=== PATIENT | female | born 1945 | race Caucasian/White ===

== ENCOUNTER → 2022-04-19 15:34 | Outpatient (CLI) | payer MEDICARE, SELFPAY | PROVIDERS: Visit Provider Registered Nurse | DX: N89.8 Other specified noninflammatory disorders of vagina (principal) | CPT/HCPCS: 87210 ==

== ENCOUNTER → 2022-04-30 13:01 | Outpatient (CLI) | payer MEDICARE, SELFPAY | PROVIDERS: Visit Provider Registered Nurse | DX: N89.8 Other specified noninflammatory disorders of vagina (principal) | CPT/HCPCS: 87210 ==

== ENCOUNTER 2022-05-21 11:47 | Emergency (ER) | payer MEDICARE, SELFPAY ==
[2022-05-21 12:30] VITALS: BP 133/60; PULSE 75; RESP 14; TEMP 36.4; O2SAT 98; BMI 20.9
[2022-05-21 13:37] LABS: RBC Urine 0-1/HPF (0-5/HPF); WBC Urine 30-100/HPF (0-5/HPF)
[2022-05-21 13:38] LABS: Amorphous Sediment Urine 1+; Bacteria Urine Many (>30); Culture Indicated Urine Specimen Cultured; Mucus Urine 1+ (Negative); Squamous Epithelial Cell Urine 5-10 /HPF (0-5/HPF)
--- NOTE | 2022-05-21 15:09 | PC.NURSE ---
Pt reports vaginal burning that is intermittent and worse at night. Had a really hard time sleeping last night. Also having discharge/burning after starting vaginal estrogen suppositories. No vaginal bleeding.
[2022-05-21 16:59] VITALS: BP 184/83; PULSE 82; RESP 16; O2SAT 100
--- NOTE | 2022-05-21 19:46 | ED.FEMALEGU ---
HPI - Female Genitourinary <Lazaro Sommer PA-C - Last Filed: 05/21/22 19:52> General Chief complaint: Urogenital-Female Stated complaint: couldnt sleep last night, vaginal burning Time Seen by Provider: 05/21/22 14:24 Source: patient Mode of arrival: Ambulatory History of Present Illness HPI Narrative: 76-year-old female presents to the ED with 2 days of flank pain, vaginal irritation. Patient states that she used to be on estrogen cream for atrophic vaginitis several years ago. Patient suspects her symptoms might be related to the atrophic vaginitis or she might have bacterial vaginitis which she has had before. Patient wishes to be tested for bacterial vaginitis. Patient denies other symptoms including fever, chills, vaginal discharge, chest pain, shortness of breath, nausea, vomiting, dysuria. Related Data Previous Rx's Medication Instructions Recorded cefpodoxime 200 mg tablet 200 mg PO BID 10 days #20 tabs 05/21/22 Allergies Allergy/AdvReac Type Severity Reaction Status Date / Time Sulfa (Sulfonamide Allergy Mild Hives Verified 05/21/22 12:34 Antibiotics) Review of Systems <Lazaro Sommer PA-C - Last Filed: 05/21/22 19:52> Review of Systems ROS Unobtainable: All systems reviewed & are unremarkable except as noted in HPI and below Constitutional Constitutional: Denies chills, Denies fatigue, Denies fever(s), Denies frequent falls, Denies lethargy and Denies weakness Eyes Eyes: Denies change in vision, Denies eye discharge, Denies irritation and Denies loss of vision ENT Ears, Nose, Mouth, and Throat: Denies change in voice, Denies dizziness, Denies neck pain, Denies sore throat and Denies throat swelling Cardiovascular Cardiovascular: Denies chest pain, Denies irregular heart rhythm, Denies lightheadedness, Denies palpitations, Denies dyspnea, Denies dyspnea on exertion and Denies orthopnea Respiratory Respiratory: Denies cough, Denies dyspnea, Denies dyspnea on exertion and Denies wheezing Gastrointestinal Gastrointestinal: Denies abdominal pain, Denies change in bowel habits, Denies diarrhea, Denies nausea and Denies vomiting Genitourinary Genitourinary: Denies hematuria, Denies flank pain, Denies urinary incontinence, Denies urinary urgency and Reports vaginal dryness Comments: flank pain, vaginal irritation Musculoskeletal Musculoskeletal: Denies back pain, Denies muscle weakness, Denies neck pain, Denies numbness and Denies tingling Integumentary/Breasts Skin/Breast: Denies pruritus, Denies erythema, Denies rash and Denies wounds Neurologic Neurologic: Denies behavioral changes, Denies confusion, Denies dizziness, Denies frequent falls, Denies loss of vision, Denies numbness, Denies tingling and Denies weakness Psychiatric Psychiatric: Denies anxiety, Denies behavioral changes, Denies confusion, Denies depression, Denies homicidal ideation and Denies suicidal ideation Endocrine Endocrine: Denies fatigue, Denies flushing and Denies palpitations Hematologic/Lymphatic Hematologic/Lymphatic: Denies easy bruising Allergic/Immunologic Allergic/Immunologic: Denies urticaria, Denies throat swelling and Denies wheezing Patient History <Lazaro Sommer PA-C - Last Filed: 05/21/22 19:52> alcohol intake frequency: 0-2 drinks per day Substance Use Type: does not use Exam <Lazaro Sommer PA-C - Last Filed: 05/21/22 19:52> Narrative Exam Narrative: Const General:?cooperative, healthy appearing and comfortable [facility] Head:?normal to inspection Ears:?hearing grossly normal bilaterally Nose:?external nose normal Face and sinus:?normal facial exam and sinuses nontender Mouth:?oral mucosae normal Throat:?posterior oropharynx normal Eyes General:?appearance normal, both eyes and all related structures Neck Neck:?normal visual inspection and no lymphadenopathy noted Resp Effort & Inspection:?normal respiratory effort Auscultation:?clear to auscultation bilaterally Cardio Rate:?regular rate Rhythm:?regular rhythm Vulva, external vagina appear erythematous and tender to touch on external exam. No discharge, rashes noted on exam. Internal exam deferred. Neuro General:?patient alert, patient awake and patient oriented x3 Initial Vital Signs Initial Vital Signs: Vital Signs Temperature 97.6 F 05/21/22 12:30 Pulse Rate 75 05/21/22 12:30 Respiratory Rate 14 05/21/22 12:30 Blood Pressure 133/60 05/21/22 12:30 Pulse Oximetry 98 05/21/22 12:30 Oxygen Delivery Method 05/21/22 12:30 <Peter Juares MD - Last Filed: 05/27/22 08:54> Initial Vital Signs Initial Vital Signs: Vital Signs Temperature 97.6 F 05/21/22 12:30 Pulse Rate 75 05/21/22 12:30 Respiratory Rate 14 05/21/22 12:30 Blood Pressure 133/60 05/21/22 12:30 Pulse Oximetry 98 05/21/22 12:30 Oxygen Delivery Method 05/21/22 12:30 Course <Lazaro Sommer PA-C - Last Filed: 05/21/22 19:52> Orders Ordered: ED Orders 05/21/22 13:11 Urine Culture Stat Urine Microscopic Stat 05/21/22 16:35 Wet Prep Tric BV Alysa Stat Vital Signs Vital signs: Vital Signs - 8 hr 05/21/22 12:30 05/21/22 16:59 Temperature 97.6 F Pulse Rate 75 82 Respiratory Rate 14 16 Blood Pressure 133/60 184/83 H Pulse Oximetry 98 100 Oxygen Delivery Method Room Air Room Air <Peter Juares MD - Last Filed: 05/27/22 08:54> Orders Ordered: ED Orders 05/21/22 13:11 Urine Culture Stat Urine Microscopic Stat 05/21/22 16:35 Wet Prep Tric BV Alysa Stat Vital Signs Vital signs: Vital Signs - 8 hr 05/21/22 12:30 05/21/22 16:59 Temperature 97.6 F Pulse Rate 75 82 Respiratory Rate 14 16 Blood Pressure 133/60 184/83 H Pulse Oximetry 98 100 Oxygen Delivery Method Room Air Room Air MDM - Female Genitourinary <Lazaro Sommer PA-C - Last Filed: 05/21/22 19:52> Lab Data Labs: Lab Results 05/21/22 Range/Units 13:11 Urine RBC 0-1/hpf (0-5/HPF) Urine WBC 30-100/hpf H (0-5/HPF) Ur Squamous Epith Cells 5-10 /hpf H (0-5/HPF) Amorphous Sediment 1+ Urine Bacteria Many (>30) H (None) Urine Mucus 1+ H (Negative) Ur Culture Indicated? Specimen cultured Urine Dip Bedside Urine Glucose Negative Bedside Urine Bilirubin - Negative Bedside Urine Ketone - Negative Urine Specific [place] 1.015 Bedside Urine Occult Blood + Bedside Urine pH 7.0 Bedside Urine Protein +/- 15 Bedside Urine Urobilinogen - Negative Bedside Urine Nitrite - Negative Bedside Urine Leukocytes +++ 500 Esterase MDM Narrative Medical decision making narrative: 76-year-old female presents to the ED with 2 days of flank pain, vaginal irritation. Concern for bacterial vaginitis versus atrophic vaginitis versus UTI versus other. UA was positive for UTI. Wet prep negative for bacterial vaginitis. Patient started on cefpodoxime for the UTI. ED return precautions discussed with patient. Patient verbalized understanding. <Peter Juares MD - Last Filed: 05/27/22 08:54> Lab Data Labs: Lab Results 05/21/22 Range/Units 13:11 Urine RBC 0-1/hpf (0-5/HPF) Urine WBC 30-100/hpf H (0-5/HPF) Ur Squamous Epith Cells 5-10 /hpf H (0-5/HPF) Amorphous Sediment 1+ Urine Bacteria Many (>30) H (None) Urine Mucus 1+ H (Negative) Ur Culture Indicated? Specimen cultured Urine Dip Bedside Urine Glucose Negative Bedside Urine Bilirubin - Negative Bedside Urine Ketone - Negative Urine Specific [place] 1.015 Bedside Urine Occult Blood + Bedside Urine pH 7.0 Bedside Urine Protein +/- 15 Bedside Urine Urobilinogen - Negative Bedside Urine Nitrite - Negative Bedside Urine Leukocytes +++ 500 Esterase Discharge Plan Departure Patient Disposition: Home Clinical Impression: Urinary tract infection Instructions: DI for Urinary Tract Infection (UTI) Activity Restrictions/Additional Instructions: You were evaluated in the ED today for vaginal irritation. Your urine was positive for a urinary tract infection. You are being treated with antibiotics. Please complete the full course of antibiotics. Your test for bacterial vaginosis has been sent to the lab, we will call you with the results and if you need treatments we can call in medications for it as well. Please follow-up with your PCP as soon as possible. Return to the ED if your symptoms worsen, you experience persistent vomiting, nausea, chills, fever. Prescriptions: New cefpodoxime 200 mg tablet 200 mg PO BID 10 Days Qty: 20 0RF Rx Instructions: must administer with a meal/food Referrals: Doctor Berry MD [Primary Care Provider] - Visit Report Forms: Patient Portal/API <Peter Juares MD - Last Filed: 05/27/22 08:54> Cosign ED Attending Cosignature Attestation: I was immediately available in the department for consultation. ?This documentation has been reviewed and I agree with assessment and plan. Supervised by Peter Juares MD
== END 2022-05-21 17:01 | disposition home or self-care (01) ==
PROVIDERS: Emergency Medicine; Emergency Provider Student in an Organized Health Care Education/Training Program; Referring Provider Family Medicine
DX: N39.0 Urinary tract infection, site not specified (principal)
CPT/HCPCS: 81003; 81015; 87077; 87086; 87210; 99282

== ENCOUNTER → 2022-05-27 16:09 | Outpatient (CLI) | payer MEDICARE, SELFPAY | PROVIDERS: Visit Provider Nurse Practitioner Family | DX: N39.0 Urinary tract infection, site not specified (principal) | CPT/HCPCS: 87086; 87210 ==

== ENCOUNTER → 2024-12-20 07:39 | Outpatient (CLI) | payer MEDICARE, SELFPAY ==
[2024-12-20 08:54] LABS: Add Manual Diff / Slide Review NO; Hematocrit 37.0 % (36-46); Hemoglobin 12.3 g/dL (12.0-16.0); Lymphocytes Absolute Auto 600 /uL (1100-4500); Mean Corpuscular HGB Conc 33.2 % (30-36); Mean Corpuscular Hemoglobin 29.5 PG (26-34); Mean Corpuscular Volume 88.6 fL (80-100); Platelet Count 246 X10^3/uL (150-400)
[2024-12-20 09:04] LABS: Hemoglobin A1C% w Est Avg Glu 5.5 % (4.0-6.0)
[2024-12-20 09:12] LABS: Alanine Aminotransferase 81 IU/L (<35); Albumin 4.1 g/dL (3.5-5.0); Albumin Globulin Ratio 1.6 (1.0-2.8); Alkaline Phosphatase 123 U/L (38-126); Blood Urea Nitrogen 24 mg/dL (7-17); Calcium 9.3 mg/dL (8.4-10.2); Carbon Dioxide 26 mmol/L (22-32); Chloride 105 mmol/L (98-107); Cholesterol 171 mg/dL (140-199); Estimated Glomerular Filt Rate 58 mL/min (>60); Globulin 2.6 g/dL (1.7-4.1); Glucose 91 mg/dL (70-99); HDL Cholesterol 64 mg/dL (40-60); HEMOLYSIS < 15 (0-50); Potassium 4.8 mmol/L (3.4-5.1); Sodium 137 mmol/L (137-145); Total Protein 6.7 g/dL (6.3-8.2); Triglycerides 89 mg/dL (35-150)
[2024-12-20 09:29] LABS: Vitamin D 25 Hydroxy (D3) 33.1 ng/mL (30.0-100.0)
[2024-12-20 09:43] LABS: TSH w/ Reflex to FT4 3.00 uIU/mL (0.47-4.68)
[2024-12-20 16:40] LABS: Hep C Virus Ab w/Reflex Quant NEGATIVE s/c (NEGATIVE)
== END ==
PROVIDERS: Internal Medicine; PCP Family Medicine; Referring Provider Family Medicine; Visit Provider Family Medicine
DX: Z00.00 Encounter for general adult medical examination without abnormal findings (principal); Z13.1 Encounter for screening for diabetes mellitus; I10 Essential (primary) hypertension
CPT/HCPCS: 36415; 80053; 80061; 82306; 83036; 84443; 85025; 86803